=== PATIENT | male | born 1950 | race Hispanic/Latino ===

== ENCOUNTER 2017-09-01 17:37 | Emergency (ER) | payer MEDICARE ==
--- NOTE | 2017-09-01 17:58 | ED PDOC ---
Arrival/HPI - General Chief Complaint: Shortness Of Breath Time Seen by Provider: 09/01/17 17:39 Historian: Patient - History of Present Illness Narrative History of Present Illness (Text): 09/01/17 17:50 66 year old male, whose PMH includes hypertension, diabetes, hypercholesterolemia, and aneurysm, who presents to the emergency department complaining of shortness of breath on exertion associated with cough. patient reports his PMD advised him to go to the emergency department for further evaluation. Patient denies fever, nausea, vomiting, diarrhea, chest pain, abdominal pain, or other complaints. PMD: Dr. Barbosa Time/Duration: Prior to Arrival Symptom Onset: Sudden Symptom Course: Unchanged Context: Exertion, Home Past Medical History - Provider Review Nursing Documentation Reviewed: Yes - Infectious Disease Hx of Infectious Diseases: None - Cardiac Hx Hypertension: Yes Other/Comment: aortic stenosis. aneurysm - Endocrine/Metabolic Hx Diabetes Mellitus Type 2: Yes - Hematological/Oncological Other/Comment: Lyme disease - Musculoskeletal/Rheumatological Other/Comment: hip replacement - Psychiatric Hx Substance Use: No - Surgical History Hx Cholecystectomy: Yes Hx Orthopedic Surgery: Yes (shelby hip sx) Other/Comment: Knee sx. L breast lumpectomy. Pilonidal cyst - Anesthesia Hx Anesthesia: Yes Hx Anesthesia Reactions: No Hx Malignant Hyperthermia: No Family/Social History - Physician Review Nursing Documentation Reviewed: Yes Family/Social History: Unknown Family HX Smoking Status: Never Smoked Hx Alcohol Use: No Hx Substance Use: No Allergies/Home Meds Allergies/Adverse Reactions: Allergies No Known Allergies Allergy (Unverified 09/01/17 17:56) Home Medications: Home Meds Medication Instructions Recorded Confirmed Atorvastatin [Lipitor] 1 tab PO HS 09/01/17 09/01/17 Celecoxib [Celebrex] 1 tab PO DAILY 09/01/17 09/01/17 Diclofenac Sodium [Voltaren] 1 appful TOP DAILY 09/01/17 09/01/17 Nebivolol [Bystolic] 1 tab PO DAILY 09/01/17 09/01/17 Valsartan/Hydrochlorothiazide 1 tab PO DAILY 09/01/17 09/01/17 [Diovan Hct 160-25 mg Tablet] Zolpidem [Ambien] 1 tab PO HS 09/01/17 09/01/17 oxyCODONE/Acetaminophen [Percocet 1 tab PO PRN PRN 09/01/17 09/01/17 5/325 mg Tab] Review of Systems - Review of Systems Constitutional: absent: Fevers ENT: absent: Sore Throat Respiratory: SOB, Cough Cardiovascular: absent: Chest Pain Gastrointestinal: absent: Abdominal Pain, Vomiting Genitourinary Male: absent: Dysuria Musculoskeletal: absent: Back Pain Skin: absent: Rash Neurological: absent: Headache Endocrine: absent: Diaphoresis Physical Exam Vital Signs Reviewed: Yes Vital Signs Temp Pulse Resp BP Pulse Ox 09/01/17 20:50 98.5 F 75 18 122/81 97 09/01/17 20:41 77 18 93 L 09/01/17 18:00 18 95 09/01/17 17:49 97.6 F 77 18 127/74 94 L Temperature: Afebrile Blood Pressure: Normal Pulse: Regular Respiratory Rate: Normal Appearance: Positive for: Well-Appearing, Non-Toxic, Comfortable, Other ( morbidly obese ) Pain Distress: None Mental Status: Positive for: Alert and Oriented X 3 - Systems Exam Head: Present: Atraumatic, Normocephalic Pupils: Present: PERRL Extroacular Muscles: Present: EOMI Conjunctiva: Present: Normal Respiratory/Chest: Present: Clear to Auscultation, Good Air Exchange. No: Respiratory Distress, Accessory Muscle Use, Wheezes, Decreased Breath Sounds, Rales, Retracting, Rhonchi Cardiovascular: Present: Regular Rate and Rhythm, Normal S1, S2. No: Murmurs Abdomen: Present: Normal Bowel Sounds. No: Tenderness, Distention, Peritoneal Signs, Rebound, Guarding Lower Extremity: Present: Edema (+2 edema), Normal ROM, Neurovascularly Intact. No: Normal Inspection, Deformity Neurological: Present: GCS=15, CN II-XII Intact, Speech Normal Skin: Present: Warm, Dry, Normal Color. No: Rashes Psychiatric: Present: Alert, Oriented x 3, Normal Insight, Normal Concentration Medical Decision Making ED Course and Treatment: 09/01/17 Impression: 66 year old male who is morbidly obese and has pedal edema +2 complaining of shortness of breath and cough. Plan: -- EKG -- Chest X-ray -- Labs -- Urinalysis -- Reassess and disposition Progress Notes: 09/01/17 18:34 EKG: Ordered, reviewed, and independently interpreted the EKG. Rate : 82 BPM Rhythm : NSR Interpretation : No ST-segment elevations or depressions, no T-wave inversions, normal intervals. 09/01/17 21:20 CT Angiography: FINDINGS: Pulmonary arteries: No central pulmonary embolism. No gross evidence of proximal branch embolism. However its suboptimally opacified. Aorta: No acute findings. No thoracic aortic aneurysm. Lungs: Minimal effusion right greater than left with ground glass opacity infiltrate in the lungs bilaterally. Pleural space: Unremarkable. No significant effusion. No pneumothorax. Heart: Unremarkable. No cardiomegaly. No significant pericardial effusion. No evidence of RV dysfunction. Bones/joints: No acute fracture. No dislocation. Soft tissues: Unremarkable. Lymph nodes: Unremarkable. No enlarged lymph nodes. Kidneys and ureters: Nonobstructing calculus in the left kidney. IMPRESSION: Minimal effusion right greater than left with ground glass opacity infiltrate in the lungs bilaterally. 09/01/17 22:31 ct shows ground glass infiltrate, non specific. pt offered admission for further eval, however he declines. he states he wishes to follow up with pmd tommorow. advise outpt fu and return precautions. will treat empirically with steriods and antibiotics. i discussed results in detail, and he continues to refuse admission. - Lab Interpretations Lab Results: 09/01/17 18:36 09/01/17 18:36 Lab Results 09/01/17 18:36: Sodium 144, Potassium 4.3, Chloride 106, Carbon Dioxide 27, Anion Gap 16, BUN 29 H, Creatinine 1.0, Est GFR ( Amer) > 60, Est GFR ( Non-Af Amer) > 60, Random Glucose 149 H, Calcium 9.5, Magnesium 1.8, Total Bilirubin 1.2, AST 47, ALT 84 H, Alkaline Phosphatase 81, Lactate Dehydrogenase 518, Total Creatine Kinase 125, Troponin I < 0.01, NT-Pro-B Natriuret Pep 297, Total Protein 7.6, Albumin 4.1, Globulin 3.5, Albumin/Globulin Ratio 1.2 09/01/17 18:36: Urine Color Yellow, Urine Appearance Clear, Urine pH 6.0, Ur Specific [place] 1.025, Urine Protein Negative, Urine Glucose (UA) Negative, Urine Ketones Negative, Urine Blood Negative, Urine Nitrate Negative, Urine Bilirubin Negative, Urine Urobilinogen 0.2, Ur Leukocyte Esterase Negative 09/01/17 18:36: PT 11.5, INR 1.01, APTT 27.7, D-Dimer, Quantitative 641 H 09/01/17 18:36: WBC 10.5, RBC 3.75, Hgb 10.7 L, Hct 33.3 L, MCV 88.8, MCH 28.5, MCHC 32.1, RDW 15.5 H, Plt Count 228, MPV 12.0 H, Gran % 71.0 H, Lymph % (Auto) 20.0 L, [place] % (Auto) 5.7, Eos % (Auto) 3.1, Baso % (Auto) 0.2, Gran # 7.45 H, Lymph # (Auto) 2.1, [place] # (Auto) 0.6, Eos # (Auto) 0.3, Baso # (Auto) 0.02 I have reviewed the lab results: Yes - RAD Interpretation Radiology Orders: 09/01/17 17:57 CHEST PORTABLE [RAD] Stat 09/01/17 19:04 ANGIO CHEST PE PROTOCOL [CT] Stat 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 - EKG Interpretation Interpreted by ED Physician: Yes Type: 12 lead EKG - Medication Orders Current Medication Orders: Discontinued Medications Levofloxacin/Dextrose (Levaquin 750mg) 750 mg in 150 mls @ 100 mls/hr IVPB STAT STA PRN Reason: Protocol Stop: 09/01/17 22:18 Last Admin: 09/01/17 21:08 Dose: 100 mls/hr eMAR Start Stop Document 09/01/17 21:08 NE (Rec: 09/01/17 21:08 NE [id number]) Intravenous Solution Start Date 09/01/17 Start Time 21:08 Prednisone (Prednisone Tab) 50 mg PO STAT STA Stop: 09/01/17 20:57 Last Admin: 09/01/17 21:15 Dose: 50 mg - Scribe Statement The provider has reviewed the documentation as recorded by the Franci Manjarrez Provider Calebibe Attestation: All medical record entries made by the Calebibbarry were at my direction and personally dictated by me. I have reviewed the chart and agree that the record accurately reflects my personal performance of the history, physical exam, medical decision making, and the department course for this patient. I have also personally directed, reviewed, and agree with the discharge instructions and disposition. Disposition/Present on Arrival - Present on Arrival History of DVT/PE: No History of Uncontrolled Diabetes: No Urinary Catheter: No History of Decub. Ulcer: No History Surgical Site Infection Following: None - Disposition Diagnosis: Dyspnea, Lung infiltrate Disposition: HOME/ ROUTINE Patient Problems: Current Active Problems Problem Status Onset Dyspnea Acute Lung infiltrate Acute Condition: STABLE Discharge Instructions (ExitCare): Pneumonia in Adults, Shortness of Breath ( Dyspnea) (DC) Additional Instructions: please follow up with your doctor/ you are declining admission to the hospital. please return to emergency room with worsening symptoms or concerns. you may additional testing as an outpatient. please discuss your lab and ct results with your doctor. Prescriptions: levoFLOXacin [Levaquin] 750 mg PO DAILY #10 tab Prednisone 50 mg PO DAILY #4 tablet Forms: [employer] (Georgian)
[2017-09-01 18:14] VITALS: RESP 18; BMI 52.0
[2017-09-01 18:50] LABS: BASO # 0.02 K/mm3 (0.0-2.0); BASO % 0.2 % (0.0-3.0); EOS # 0.3 (0.0-0.7); EOS % 3.1 % (1.5-5.0); GRAN # 7.45 (1.4-6.5); HEMOGLOBIN 10.7 g/dL (14.0-18.0); LYMPH # 2.1 (1.2-3.4); MEAN CELL VOLUME 88.8 fl (80.0-105.0); MEAN CORPUSCULAR HEMOGLOBIN 28.5 pg (25.0-35.0); MEAN CORPUSCULAR HGB CONC 32.1 g/dl (31.0-37.0); MONO # 0.6 (0.1-0.6); MONO % 5.7 % (1.0-6.0); RBC 3.75 10^6/uL (3.5-6.1); RED CELL DISTRIBUTION WIDTH 15.5 % (11.5-14.5); WHITE BLOOD COUNT 10.5 10^3/ul (4.5-11.0)
[2017-09-01 18:51] LABS: URINE BILIRUBIN NEGATIVE (NEGATIVE); URINE BLOOD NEGATIVE (NEGATIVE); URINE GLUCOSE (UA) NEGATIVE (NEGATIVE); URINE LEUKOCYTE ESTERASE NEGATIVE Leu/uL (NEGATIVE); URINE PROTEIN NEGATIVE mg/dL (<30 mg/dL); URINE UROBILINOGEN 0.2 E.U./dL (<1 E.U./dL)
[2017-09-01 18:53] LABS: URINE APPEARANCE CLEAR (CLEAR); URINE COLOR YELLOW (YELLOW)
[2017-09-01 18:59] LABS: ALB/GLOB RATIO 1.2 (1.1-1.8); ALBUMIN 4.1 g/dL (3.0-4.8); ALT/SGPT 84 U/L (7-56); AST/SGOT 47 U/L (17-59); BLOOD UREA NITROGEN 29 mg/dL (7-21); CALCIUM 9.5 mg/dL (8.4-10.5); GFR AFRICAN-AMERICAN > 60; GFR NON-AFRICAN AMERICAN > 60
[2017-09-01 19:03] LABS: INR 1.01 (0.93-1.08); PARTIAL THROMBOPLASTIN TIME 27.7 Seconds (25.1-36.5); PROTHROMBIN TIME 11.5 SECONDS (9.4-12.5)
[2017-09-01] MEDS ORDERED: Iohexol 350 MG/100 ML VIAL ONE (19:07)
[2017-09-01 19:08] LABS: B-TYPE NATRIURETIC PEPTIDE 297 pg/mL (0-450); TROPONIN I < 0.01 ng/mL
[2017-09-01] MEDS ORDERED: levoFLOXacin 750 mg in D5W 750 MG/150 ML BAG IVPB STA (20:49)
[2017-09-01 20:51] VITALS: PULSE 75; TEMP 98.5
[2017-09-01 23:00] VITALS: BP 125/79
[2017-09-01 23:01] VITALS: O2SAT 98
--- NOTE | 2017-09-02 07:54 | CARD ---
APPROVED REPORT EKG Measurement Heart [id number] <Conclusion> Normal sinus rhythm Normal ECG
--- NOTE | 2017-09-02 08:19 | CT ---
PROCEDURE: CT Chest with contrast (Pulmonary Angiogram) HISTORY: sob elevated dimer COMPARISON: None available. TECHNIQUE: Axial computed tomography images were obtained of the chest in the pulmonary arterial phase of enhancement. Coronal and sagittal reformatted images were created and reviewed. Intravenous contrast dose: 593 Radiation dose: Total exam DLP = mGy-cm. This CT exam was performed using one or more of the following dose reduction techniques: Automated exposure control, adjustment of the mA and/or kV according to patient size, and/or use of iterative reconstruction technique. FINDINGS: PULMONARY ARTERIES: Unremarkable. No pulmonary embolism. AORTA: No acute findings. No thoracic aortic aneurysm. LUNGS: Diffuse mosaic pattern suggestive of air-trapping.. PLEURAL SPACES: Small bilateral plerual effusions. HEART: Unremarkable. No cardiomegaly. No significant pericardial effusion. LYMPH NODES: No lymphadenopathy. BONES, CHEST WALL: Unremarkable. No fracture or destructive lesion OTHER FINDINGS: Cholecystectomy.Left nephrolithiasis.. IMPRESSION: SMall effusions. No pulmonary embolus.
--- NOTE | 2017-09-02 08:49 | RAD ---
HISTORY: cp COMPARISON: 07/12/2016 FINDINGS: LUNGS: No active pulmonary disease. PLEURA: No significant pleural effusion identified, no pneumothorax apparent. CARDIOVASCULAR: Mild cardiomegaly OSSEOUS STRUCTURES: No significant abnormalities. VISUALIZED UPPER ABDOMEN: Normal. OTHER FINDINGS: None. IMPRESSION: No active disease.
== END 2017-09-01 23:00 | disposition home or self-care (01) ==
LOC: ED 17:37
DX: R06.00 Dyspnea, unspecified (principal); R91.8 Other nonspecific abnormal finding of lung field; I10 Essential (primary) hypertension; E11.9 Type 2 diabetes mellitus without complications; E78.00 Pure hypercholesterolemia, unspecified
CPT/HCPCS: 71045; 71275; 80053; 81003; 82550; 83615; 83735; 83880; 84484; 85025; 85378; 85610; 85730; 93005; 99285; Q9967

== ENCOUNTER 2017-10-30 20:54 | Emergency (ER) | payer MEDICARE, BC ==
[2017-10-30 21:30] VITALS: TEMP 97.6; BMI 47.9
[2017-10-30] MEDS ORDERED: Lidocaine 5% Patch TD ONE (23:00)
--- NOTE | 2017-10-30 23:12 | ED PDOC ---
Arrival/HPI - General Chief Complaint: Back Pain Time Seen by Provider: 10/30/17 22:38 Historian: Patient - History of Present Illness Narrative History of Present Illness (Text): 10/30/17 23:04 66 y/o M, whose past medical history includes HTN, HLD, DM, and unruptured AAA, presents complaining of neck pain for the past 3 days. Patient says it is localized to the left side of the neck and hurts with any sudden movement. He denies any recent trauma to the neck area. He states he took two Advil and one percocet with no relief. Patient denies any fever, chills, chest pain, shortness of breath, abdominal pain, nausea, vomiting, diarrhea, urinary symptoms, back pain, rigidity, headache, dizziness, or any other complaints. PMD: Dr. Tejeda Time/Duration: Other (3 days) Symptom Onset: Gradual Symptom Course: Unchanged Quality: Stabbing Severity Level: 9 Activities at Onset: Rest Context: Home Past Medical History - Provider Review Nursing Documentation Reviewed: Yes - Travel History Have you recently traveled outside [place] w/in the past 3 mons?: No - Infectious Disease Hx of Infectious Diseases: None - Cardiac Hx Hypertension: Yes Other/Comment: aortic stenosis. aneurysm - Endocrine/Metabolic Hx Diabetes Mellitus Type 2: Yes - Hematological/Oncological Other/Comment: Lyme disease - Musculoskeletal/Rheumatological Other/Comment: hip replacement - Psychiatric Hx Substance Use: No - Surgical History Hx Cholecystectomy: Yes Hx Orthopedic Surgery: Yes (shelby hip sx) Other/Comment: Knee sx. L breast lumpectomy. Pilonidal cyst - Anesthesia Hx Anesthesia: Yes Hx Anesthesia Reactions: No Hx Malignant Hyperthermia: No Family/Social History - Physician Review Nursing Documentation Reviewed: Yes Family/Social History: No Known Family HX Smoking Status: Never Smoked Hx Alcohol Use: No Hx Substance Use: No Allergies/Home Meds Allergies/Adverse Reactions: Allergies No Known Allergies Allergy (Unverified 09/01/17 17:56) Home Medications: Home Meds Medication Instructions Recorded Confirmed Atorvastatin [Lipitor] 1 tab PO HS 09/01/17 09/01/17 Celecoxib [Celebrex] 1 tab PO DAILY 09/01/17 09/01/17 Diclofenac Sodium [Voltaren] 1 appful TOP DAILY 09/01/17 09/01/17 Nebivolol [Bystolic] 1 tab PO DAILY 09/01/17 09/01/17 Valsartan/Hydrochlorothiazide 1 tab PO DAILY 09/01/17 09/01/17 [Diovan Hct 160-25 mg Tablet] Zolpidem [Ambien] 1 tab PO HS 09/01/17 09/01/17 oxyCODONE/Acetaminophen [Percocet 1 tab PO PRN PRN 09/01/17 09/01/17 5/325 mg Tab] Review of Systems - Physician Review All systems were reviewed & negative as marked: Yes - Review of Systems Constitutional: absent: Fevers, Other (Chills) Respiratory: absent: SOB Cardiovascular: absent: Chest Pain Gastrointestinal: absent: Abdominal Pain, Diarrhea, Nausea, Vomiting Genitourinary Male: absent: Dysuria, Frequency, Hematuria Musculoskeletal: Neck Pain. absent: Back Pain, Joint Swelling, Myalgias, Other (rigidity) Neurological: absent: Headache, Dizziness Physical Exam Vital Signs Reviewed: Yes Vital Signs Temp Pulse Resp BP Pulse Ox 10/31/17 02:45 72 18 135/72 97 10/31/17 01:00 80 18 134/70 97 10/30/17 23:00 77 18 139/74 97 10/30/17 21:47 97.6 F 81 20 142/75 96 10/30/17 21:28 97.6 F 81 20 142/75 96 Temperature: Afebrile Blood Pressure: Normal Pulse: Regular Respiratory Rate: Normal Appearance: Positive for: Well-Appearing, Non-Toxic, Comfortable Pain Distress: None Mental Status: Positive for: Alert and Oriented X 3 - Systems Exam Head: Present: Atraumatic, Normocephalic Pupils: Present: PERRL Extroacular Muscles: Present: EOMI Conjunctiva: Present: Normal Mouth: Present: Moist Mucous Membranes Neck: Present: Normal Range of Motion, Paraspinal Tenderness, Other ((+)Tender to palpation to the left side of neck with FROM (-) Nuchal rigidity). No: Meningeal Signs, MIDLINE TENDERNESS Respiratory/Chest: Present: Clear to Auscultation, Good Air Exchange. No: Respiratory Distress, Accessory Muscle Use Cardiovascular: Present: Regular Rate and Rhythm, Normal S1, S2. No: Murmurs Abdomen: No: Tenderness, Distention, Peritoneal Signs Back: Present: Normal Inspection Upper Extremity: Present: Normal Inspection. No: Cyanosis, Edema Lower Extremity: Present: Normal Inspection. No: Edema Neurological: Present: GCS=15, CN II-XII Intact, Speech Normal Skin: Present: Warm, Dry, Normal Color. No: Rashes Psychiatric: Present: Alert, Oriented x 3, Normal Insight, Normal Concentration Medical Decision Making ED Course and Treatment: 10/30/17 23:04 Impression: 66 year old male presents complaining of left sided neck pain that began 3 days ago. Differential Diagnosis Includes But is not Limited to: Cervical spondylosis Carotid artery dissection Herniated Disk Plan: -- CT Cervical spine w/o contrast -- Lidoderm, Toradol, Valium -- Reassess and disposition Progress Notes: CT Cervical Spine Without Intravenous Contrast Dictated and Authenticated by: Robert Holder MD 10/31/2017 2:29 AM IMPRESSION: 1. No fracture. 2. Incidental/non-acute findings are described above 10/31/17 02:42 Given patient denies recent trauma to neck along with denying COOPER/weakness and benign neurologic exam, I am less concerned for carotid artery dissection and do not warrant a CT angio of the neck at this time. CT cervical spine negative. On re-evaluation, patient feels better and is in no acute distress. I have discussed the results and plan with the patient, who expresses understanding. Patient in agreement with plan to be discharged home. Scripts provided. Patient is stable for discharge. Patient was instructed to follow up with physician or return if symptoms worsen or new concerning symptoms arise. - RAD Interpretation Radiology Orders: 10/30/17 22:59 CERVICAL SPINE W/O CONTRAST [CT] Stat - Medication Orders Current Medication Orders: Discontinued Medications Diazepam (Valium) 5 mg PO ONCE ONE PRN Reason: Protocol Stop: 10/30/17 23:01 Last Admin: 10/30/17 23:27 Dose: 5 mg Ketorolac Tromethamine (Toradol) 60 mg IM STAT STA Stop: 10/30/17 23:14 Last Admin: 10/30/17 23:27 Dose: 60 mg MAR Pain Assessment Document 10/30/17 23:27 JO (Rec: 10/30/17 23:28 JO [id number]) Pain Reassessment Is this a pain reassessment? No Sleep Is patient sleeping during reassessment? No Presence of Pain Presence of Pain Yes Pain Scale Used Pain Scale Used Numeric Location Pain Location Body Site Neck Description Intensity of Pain at present 7 IM Administration Charges Document 10/30/17 23:27 JO (Rec: 10/30/17 23:28 [facility] [id number]) Charges for Administration # of IM Administrations 1 Lidocaine (Lidoderm) 1 ea TD ONCE ONE Stop: 10/30/17 23:01 Last Admin: 10/30/17 23:27 Dose: 1 ea MAR Transdermal Patch Site Document 10/30/17 23:27 JOL (Rec: 10/30/17 23:27 [facility] [id number]) Transdermal Patch Site Transdermal Patch Site Left Shoulder - Scribe Statement The provider has reviewed the documentation as recorded by the Franci Merino Provider Scribe Attestation: All medical record entries made by the Scribe were at my direction and personally dictated by me. I have reviewed the chart and agree that the record accurately reflects my personal performance of the history, physical exam, medical decision making, and the department course for this patient. I have also personally directed, reviewed, and agree with the discharge instructions and disposition. Disposition/Present on Arrival - Present on Arrival Any Indicators Present on Arrival: No History of DVT/PE: No History of Uncontrolled Diabetes: No Urinary Catheter: No History of Decub. Ulcer: No History Surgical Site Infection Following: None - Disposition Have Diagnosis and Disposition been Completed?: Yes Diagnosis: Neck pain Disposition: HOME/ ROUTINE Disposition Time: 02:32 Patient Plan: Discharge Condition: IMPROVED Discharge Instructions (ExitCare): Neck Pain, Chronic Neck Pain (DC) Referrals: Faustino Tejeda MD [Primary Care Provider] - Follow up with primary Forms: [employer] (Icelandic)
[2017-10-31 07:12] VITALS: BP 135/72; PULSE 72; RESP 18; O2SAT 97
--- NOTE | 2017-10-31 10:17 | CT ---
Date of service: 10/31/2017 PROCEDURE: CT Cervical Spine without contrast HISTORY: fall COMPARISON: None available. TECHNIQUE: Axial computed tomography images were obtained of the cervical spine without the use of intravenous contrast. Coronal and sagittal reformatted images were created and reviewed. Radiation dose: Total exam DLP = 644 mGy-cm. This CT exam was performed using one or more of the following dose reduction techniques: Automated exposure control, adjustment of the mA and/or kV according to patient size, and/or use of iterative reconstruction technique. FINDINGS: VERTEBRAE: No fracture. Normal alignment. No destructive bony lesion. DISCS/SPINAL CANAL/NEURAL FORAMINA: No significant central canal or neural foraminal stenosis. Multilevel disc degeneration with foraminal stenosis PARASPINAL SOFT TISSUES: Unremarkable. OTHER FINDINGS: The report concurs with the preliminary [facility] report IMPRESSION: No acute findings
== END 2017-10-31 02:45 | disposition home or self-care (01) ==
LOC: ED 20:54
DX: M54.2 Cervicalgia (principal); E11.9 Type 2 diabetes mellitus without complications; E78.5 Hyperlipidemia, unspecified; I10 Essential (primary) hypertension
CPT/HCPCS: 72125; 96372; 99282; J1885

== ENCOUNTER 2018-04-13 13:50 | Outpatient (CLI) | payer MEDICARE | END 2018-04-13 13:51 | disposition home or self-care (01) | LOC: RAD 13:50 ==